=== PATIENT | male | born 1990 ===

== ENCOUNTER 2019-06-02 07:49 | Outpatient (CLI) | payer OTHER ==
[~2019-06-02] VITALS: Ht 185.4 cm; Wt 86.2 kg
== END 2019-06-02 08:10 | disposition home or self-care (01) ==
LOC: OFIC 805 07:49
DX: H61.23 Impacted cerumen, bilateral (principal); H90.3 Sensorineural hearing loss, bilateral; J30.89 Other allergic rhinitis